=== PATIENT | female | born 1950 | race Caucasian/White ===

== ENCOUNTER 2019-07-23 15:22 | Emergency (ER) | payer MEDICARE, OTHER ==
[~2019-07-23] VITALS: Ht 172.7 cm; Wt 117.9 kg
[2019-07-23] MEDS ORDERED: XARELTO15 MG PO (17:14)
[2019-07-23] MEDS ORDERED: METO25ER PO (17:14)
== END 2019-07-23 17:35 | disposition home or self-care (01) ==
LOC: ER 15:22
DX: S71.111A Laceration without foreign body, right thigh, initial encounter (principal); S81.012A Laceration without foreign body, left knee, initial encounter; I10 Essential (primary) hypertension; I48.91 Unspecified atrial fibrillation; Z23 Encounter for immunization; Z88.6 Allergy status to analgesic agent; Z79.899 Other long term (current) drug therapy; Z90.2 Acquired absence of lung [part of]
CPT/HCPCS: 12002; 90471; 90714; 99282-25

== ENCOUNTER 2019-07-25 09:45 | Emergency (ER) | payer MEDICARE, OTHER ==
[~2019-07-25] VITALS: Ht 172.7 cm; Wt 117.9 kg
[~2019-07-25 09:45] MED LIST: METO25ER PO; XARELTO15 MG PO
== END 2019-07-25 10:25 | disposition home or self-care (01) ==
LOC: ER 09:45
DX: S81.012D Laceration without foreign body, left knee, subsequent encounter (principal); S81.011D Laceration without foreign body, right knee, subsequent encounter; I10 Essential (primary) hypertension; I48.91 Unspecified atrial fibrillation; Z88.6 Allergy status to analgesic agent; Z79.899 Other long term (current) drug therapy
CPT/HCPCS: 99282

== ENCOUNTER → 2020-05-10 | Outpatient (CLI) | payer MEDICARE, OTHER | END | disposition home or self-care (01) | LOC: PLD 14:32 → LAB SHORT 14:32 | DX: I78.1 Nevus, non-neoplastic (principal); N60.32 Fibrosclerosis of left breast | CPT/HCPCS: 88305 ==

== ENCOUNTER 2021-10-22 23:29 | Emergency (ER) | payer MEDICARE, OTHER ==
[~2021-10-22] VITALS: Ht 167.6 cm; Wt 122.5 kg
== END 2021-10-23 04:15 | disposition left against medical advice (07) ==
LOC: ER 23:29
DX: R05.9 Cough, unspecified (principal); J02.9 Acute pharyngitis, unspecified; R09.89 Other specified symptoms and signs involving the circulatory and respiratory systems; Z20.822 Contact with and (suspected) exposure to COVID-19; Z53.21 Procedure and treatment not carried out due to patient leaving prior to being seen by health care provider

== ENCOUNTER → 2022-10-16 | Outpatient (CLI) | payer MEDICARE, OTHER | LOC: LAB 16:15 → LAB SHORT 16:15 | DX: N39.0 Urinary tract infection, site not specified (principal) | CPT/HCPCS: 87086 ==

== ENCOUNTER → 2024-06-28 | Outpatient (CLI) | payer MEDICARE, OTHER | END | disposition home or self-care (01) | LOC: LAB 14:05 → LAB SHORT 14:05 | DX: R10.32 Left lower quadrant pain (principal) | CPT/HCPCS: 87086 ==